=== PATIENT | female | born 1980 | race Caucasian/White ===

== ENCOUNTER → 2022-09-13 13:19 | Outpatient (POV) | payer OTHER, SELFPAY ==
--- NOTE | 2022-09-13 14:12 | EXP.PAIN.OV ---
HPI Data of Consult Patient: new to practice Consult date: 09/13/22 Requesting Physician: Amina Tavera APRN Primary Care Provider: Patrice Moura Consult Narrative Reason for consult: Low back pain, bilateral leg pain History of present illness: Ms. Desai is a 42 year old female who presents today as a new patient. She is a self-referral that went through our online website to set up her request for an appointment. Today she rates her pain a 7 out of 10. Patient states her pain is all in her low back and legs that has been going on for approximately 4 to 5 years. Patient describes this as an aching, throbbing sensation that is worse with increased activity. Patient denies any specific trauma or injury that started her pain. She does state that it just started 1 day and progressively worsened since. She does believe that part of it is related to her job. 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 Patient states that she did previously have back surgery for a ruptured disc done by Dr. Head. She states she later had the opposite side done for the same issue of a ruptured disc by Dr. Emery. She states that Dr. Emery was recommending a fusion at one point however she did not want to proceed forward with that plan of care at that time. Patient states she has not been to back to see his office for approximately 2 years. She states the last visit was when she had trouble walking for approximately 2 weeks and that he put her on steroids and this helped. Patient has tried [id number]-[id number] Tylenol and ibuprofen along with heat and ice with no additional relief. She does state that the heating pad does to work a little bit better however it is still temporary. Patient has tried topical such as Biofreeze however she did not notice any additional relief. Patient states that she has tried physical therapy in the past however she could not tolerate completing the sessions due to aggravating her pain symptoms. Patient has also been to chiropractor approximately 4 years ago however she states they made her pain worse. Patient was previously at [facility] however there was some confusion regarding an appointment date and she was discharged. Patient is currently managed with gabapentin 800 mg 4 times [address] day [address] Dr. Downs office. Patient denies any side effects from this medication. She is also been prescribed [place] 7.5 mg 3 times [address] day [address] Dr. Burks's office however she has not had this prescription since July. She is also tried tizanidine in the past however she states she did not notice significant relief it only made her tired. Patient states she has tried multiple injections in the past however she has not had any additional relief. Patient states her last imaging was just done in June or July of her lumbar MRI at [facility]. She is interested in any additional improvement we may be able to provide. Her Eliazar is [id number]. Its been reviewed and appropriate. CC: Amina Tavera, [facility] Disclaimer: The information contained in this section may have been updated after the patient was seen, as this information can be updated by other users. Social History Smoking Status: Unknown if ever smoked alcohol intake: former current occupational status: other Travel in the last 8 weeks: None Review of Systems Review of Systems Review of systems:: pertinent systems reviewed and negative unless documented below Review of systems (narrative): Review of Systems: General: No recent weight changes, no fever, no sleep disturbances Respiratory: No cough, no shortness of air, no recurring pulmonary infections Cardiovascular/peripheral vascular: No chest pain, no palpitations, no edema, no shortness of breath Gastrointestinal: No new onset incontinence, normal bowel movements reported Genitourinary: No new onset incontinence Musculoskeletal: Low back pain, leg pain Psychiatric: [Nor
[2022-09-13 15:07] VITALS: BP 121/91; PULSE 81; RESP 18; O2SAT 97; BMI 38.0
== END | disposition home or self-care (01) ==
PROVIDERS: PCP Family Medicine; Visit Provider Nurse Practitioner Family
DX: M51.16 Intervertebral disc disorders with radiculopathy, lumbar region (principal); M47.26 Other spondylosis with radiculopathy, lumbar region; M79.604 Pain in right leg; M79.605 Pain in left leg; Z98.890 Other specified postprocedural states
CPT/HCPCS: 99202; G0463